=== PATIENT | female | born 1995 | race Caucasian/White ===

== ENCOUNTER 2017-03-05 21:46 | Inpatient (IN) | payer BC ==
[2017-03-05 22:45] LABS: Hematocrit 43 % (35-47); Hemoglobin 14.9 g/dl (12.0-16.0); Mean Corpuscular HGB Conc 35 g/dl (31-36); Mean Corpuscular Hemoglobin 31 pg (27-31); Mean Corpuscular Volume 89 fL (80-97); Mean Platelet Volume 9 um3 (7.4-10.4); Red Blood Count 4.79 10^6/ul (4.0-5.4); Red Cell Distribution Width 12 % (10.5-15); White Blood Count 6.7 10^3/ul (3.5-10.8)
[2017-03-05 22:56] LABS: ALT 15 U/L (7-52); AST 22 U/L (13-39); Acetaminophen < 15 mcg/mL; Albumin 4.7 g/dL (3.2-5.2); Alcohol 220 mg/dL (<10); Alkaline Phosphatase 50 U/L (34-104); Anion Gap 11 mmol/L (2-11); BUN/Creatinine Ratio 9.5 (8-20); Blood Urea Nitrogen 8 mg/dL (6-24); CO2 Carbon Dioxide 22 mmol/L (22-32); Calcium 9.4 mg/dL (8.6-10.3); Chloride 107 mmol/L (101-111); EGFR African American 108.1 (>60); Globulin 3.4 g/dL (2-4); Glucose 102 mg/dL (70-100); Potassium 4.2 mmol/L (3.5-5.0); Salicylate < 2.50 mg/dL (<30); Sodium 140 mmol/L (133-145); Total Protein 8.1 g/dL (6.4-8.9)
[2017-03-05] MEDS ORDERED: Ondansetron INJ* 2 MG/ML VIAL IV ONE (23:00)
[2017-03-05] MEDS ORDERED: NS 0.9% 1000 ML* 1,000 ML IV ONE (23:00)
[2017-03-05 23:17] LABS: TSH (Thyroid Stimulating Horm) 6.35 mcIU/mL (0.34-5.60)
[2017-03-06 00:01] LABS: Lipase 30 U/L (11.0-82.0)
[2017-03-06 00:20] LABS: Free T4 0.87 ng/dL (0.61-1.12)
[2017-03-06 00:34] LABS: Urine Bilirubin Negative (Negative); Urine Glucose Negative (Negative); Urine Nitrite Negative (Negative)
[2017-03-06 00:50] LABS: Benzodiazepine Urine Screen None Detected (None Detect)
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
[2017-03-06] MEDS ORDERED: Al Hydrox/Mg Hydrox/Simet LIQ* 30 ML UDC PO PRN (07:39)
[2017-03-06] MEDS ORDERED: Acetaminophen TAB* 325 MG PO PRN (07:39)
[2017-03-06] MEDS ORDERED: BIRTH CONTROL PO SCH (08:00)
[2017-03-06] MEDS ORDERED: Venlafaxine EXT RELEASE CAP* 75 MG PO SCH (09:00)
[2017-03-06] MEDS: Levothyroxine TAB* 25 MCG TAB PO SCH (13:53)
[2017-03-06] MEDS: Vitamin THERAPEUTIC TAB PO SCH (13:53)
[2017-03-06] MEDS: lamoTRIgine TAB(*) 25 MG PO SCH (18:59)
[2017-03-06] MEDS: LURASIDONE 20 MG PO SCH (18:59)
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
[2017-03-07] MEDS: LURASIDONE 20 MG PO SCH (08:18)
[2017-03-07] MEDS: lamoTRIgine TAB(*) 25 MG PO SCH (08:18)
[2017-03-07] MEDS: Vitamin THERAPEUTIC TAB PO SCH (08:18)
[2017-03-07] MEDS: Levothyroxine TAB* 25 MCG TAB PO SCH (09:15)
[2017-03-07] MEDS: LEVONORGESTREL PO SCH (10:59)
[2017-03-07] MEDS: ETHINYL ESTRADIOL PO SCH (10:59)
--- NOTE | 2017-03-07 13:05 | PN ---
Subjective - Subjective Service Type: 78276 Hosp care 15 min low complexity Subjective: Patient remains depressed and did have some vague SI when she thought of the problems she's caused her family and wondered if they would be better off without her. She is tolerating the medication well so far and active in groups. "I'm forcing myself to be active and to go to the meetings. Usually I just sleep during these times." She is interested in attending AA this evening , stating that alcohol is something she's recognizing her dependence on. Family to visit [facility]. Objective - Appearance Appearance: Well Developed/Nourished Dysmorphic Features: No Hygiene: Normal Grooming: Fairly Well Kept - Behavior Psychomotor Activities: Normal Exhibits Abnormal Movement: No - Attitude and Relatedness Attitude and Relatedness: Cooperative Eye Contact: Good - Speech Quality: Unpressured Latencies: Normal Quantity: Appropriate - Mood Patient's Decription of Mood: "Sad" - Affect Observed Affect: Tearful Affect Consistent with: Dysphoria - Thought Process Patient's Thought Process: Coherent Thought Content: Yes Passive Wish, No Suicidal Planning, No Homicidal Ideation, No Paranoid Ideation - Sensorium Experiencing Hallucinations: No, Sensorium is Clear Type of Hallucinations: Visual: No, Auditory: No, Command: No - Level of Consciousness Level of Consciousness: Alert Orientation: Yes Intact, Yes Orientated to Time, Yes Orientated to Place, Yes Orientated to Person - Impulse Control Impulse Control: Tenuous - Insight and Judgement Insight and Judgement: Fair - Group Participation Particating in Group Activities: Yes - Medication Management Medication Management Adherence: Yes Assessment - Assessment Merits Inpatient Hospitalization: For Immediate Safety, For Stabilization Inpatient DSM-IV Dx: Bipolar DO, Type II Clinical Impression: 21 y.o. single, white female with a history of affective dysregulation, active substance abuse (cannabis, alcohol, cocaine) and prior diagnosis of borderline PD, who is self-referred to the hospital, accompanied by her father, following an intentional overdose on between 20 and 30 OTC ibuprofen tablets. Plan - Plan Treatment Plan: Name: RASHEL VEGA Birthdate: 1995 [id number] We have started a trial of lamotrigine 25mg PO qam and lurasidone 20mg PO qday. Continue to treat in the inpatient setting. Continued Medication Management: Different Medication Medications: Current Medications Acetaminophen (Tylenol Tab*) 650 mg PO Q4H PRN PRN Reason: PAIN or TEMP > 101 F Al Hydrox/Mg Hydrox/Simethicone (Maalox Plus*) 30 ml PO Q4H PRN PRN Reason: INDIGESTION Lamotrigine (Lamictal Tab(*)) 25 mg PO DAILY [facility] Last Admin: 03/07/17 08:18 Dose: 25 mg Levothyroxine Sodium (Synthroid Tab*) 25 mcg PO DAILY@0600 [facility] Last Admin: 03/07/17 09:15 Dose: 25 mcg Lurasidone HCl (Latuda (Nf)) 20 mg PO DAILY [facility] Last Admin: 03/07/17 08:18 Dose: 20 mg Multivitamins (Theragran Tab*) 1 tab PO DAILY [facility] Last Admin: 03/07/17 08:18 Dose: 1 tab Pto: Camrese Lo 1 dose PO DAILY [facility] Last Admin: 03/07/17 10:59 Dose: 1 dose - Discharge Plan Discharge Plan: Inpatient Hospitalization
[2017-03-08] MEDS: Levothyroxine TAB* 25 MCG TAB PO SCH (06:10)
[2017-03-08] MEDS: lamoTRIgine TAB(*) 25 MG PO SCH (08:43)
[2017-03-08] MEDS: LURASIDONE 20 MG PO SCH (08:43)
[2017-03-08] MEDS: LEVONORGESTREL PO SCH (08:44)
[2017-03-08] MEDS: ETHINYL ESTRADIOL PO SCH (08:44)
[2017-03-08] MEDS: Vitamin THERAPEUTIC TAB PO SCH (08:45)
[2017-03-09] MEDS: Levothyroxine TAB* 25 MCG TAB PO SCH (06:05)
[2017-03-09] MEDS: LURASIDONE 20 MG PO SCH (07:51)
[2017-03-09] MEDS: ETHINYL ESTRADIOL PO SCH (07:51)
[2017-03-09] MEDS: Vitamin THERAPEUTIC TAB PO SCH (07:51)
[2017-03-09] MEDS: LEVONORGESTREL PO SCH (07:51)
[2017-03-09] MEDS: lamoTRIgine TAB(*) 25 MG PO SCH (07:52)
--- NOTE | 2017-03-09 16:09 | PN ---
Subjective - Subjective Service Type: 53256 Hosp care 15 min low complexity Subjective: La appears to be upbeat today and reports that she is feeling a lot better. Threw up in the morning due to severe anxiety which resolved later during the day. Didn't have suicidal thoughts all day today and looking forwards to continue to do well and go home soon. Objective - Appearance Appearance: Healthy Appearing Dysmorphic Features: No Hygiene: Normal Grooming: Well Kept - Behavior Psychomotor Activities: Normal - Attitude and Relatedness Attitude and Relatedness: Appropriate Eye Contact: Good - Speech Quality: Unpressured Latencies: Normal Quantity: Appropriate - Mood Patient's Decription of Mood: "Fine" - Affect Observed Affect: Non-labile Affect Consistent with: Euthymia - Thought Process Patient's Thought Process: Coherent, Goal Directed Thought Content: No Passive Wish, No Suicidal Planning, No Homicidal Ideation, No Paranoid Ideation - Sensorium Experiencing Hallucinations: No, Sensorium is Clear Type of Hallucinations: Visual: No, Auditory: No, Command: No - Level of Consciousness Level of Consciousness: Alert Orientation: Yes Intact, Yes Orientated to Time, Yes Orientated to Place, Yes Orientated to Person - Impulse Control Impulse Control: Intact - Insight and Judgement Insight and Judgement: Fair - Group Participation Particating in Group Activities: Yes - Medication Management Medication Management Adherence: Yes Assessment - Assessment Merits Inpatient Hospitalization: Consolidate Improvements, For Discharge Planning Inpatient DSM-IV Dx: Bipolar DO, Type II Clinical Impression: Significantly improved and no thoughts of self harm today. Plan - Plan Treatment Plan: Name: LA VEGA Birthdate: 1995 [id number] Continued Medication Management: Continue Outpt Medication Medications: Current Medications Acetaminophen (Tylenol Tab*) 650 mg PO Q4H PRN PRN Reason: PAIN or TEMP > 101 F Al Hydrox/Mg Hydrox/Simethicone (Maalox Plus*) 30 ml PO Q4H PRN PRN Reason: INDIGESTION Lamotrigine (Lamictal Tab(*)) 25 mg PO DAILY [facility] Last Admin: 03/09/17 07:52 Dose: 25 mg Levothyroxine Sodium (Synthroid Tab*) 25 mcg PO DAILY@0600 [facility] Last Admin: 03/09/17 06:05 Dose: 25 mcg Lurasidone HCl (Latuda (Nf)) 20 mg PO DAILY [facility] Last Admin: 03/09/17 07:51 Dose: 20 mg Multivitamins (Theragran Tab*) 1 tab PO DAILY [facility] Last Admin: 03/09/17 07:51 Dose: 1 tab Pto: Faiza Bond 1 dose PO DAILY [facility] Last Admin: 03/09/17 07:51 Dose: 1 dose - Discharge Plan Discharge Plan: Outpatient Follow Up Outpatient Program: [facility]
[2017-03-10] MEDS: Levothyroxine TAB* 25 MCG TAB PO SCH (06:15)
[2017-03-10 07:59] LABS: HDL Cholesterol 53.6 mg/dL
[2017-03-10] MEDS: LEVONORGESTREL PO SCH (08:24)
[2017-03-10] MEDS: ETHINYL ESTRADIOL PO SCH (08:24)
[2017-03-10] MEDS: LURASIDONE 20 MG PO SCH (08:25)
[2017-03-10] MEDS: Vitamin THERAPEUTIC TAB PO SCH (08:25)
[2017-03-10] MEDS: lamoTRIgine TAB(*) 25 MG PO SCH (08:25)
--- NOTE | 2017-03-10 12:50 | PN ---
Subjective - Subjective Service Type: 59375 Hosp care 15 min low complexity Subjective: Patient is tolerating medications well. Denies SI. More hopeful today. Identifying supports in the community such as her grandmother and the AA community. Went to her first AA meeting yesterday. Patient attentive in groups. Completed MMPI which was significant for hypomania. Mother is visiting tomorrow for a family meeting. Objective - Appearance Appearance: Well Developed/Nourished Dysmorphic Features: No Hygiene: Normal Grooming: Fairly Well Kept - Behavior Psychomotor Activities: Normal Exhibits Abnormal Movement: No - Attitude and Relatedness Attitude and Relatedness: Cooperative Eye Contact: Fair - Speech Quality: Unpressured Latencies: Normal Quantity: Appropriate - Mood Patient's Decription of Mood: "Anxious" - Affect Observed Affect: Fair Affect Consistent with: Euthymia - Thought Process Patient's Thought Process: Coherent Thought Content: No Passive Wish, No Suicidal Planning, No Homicidal Ideation, No Paranoid Ideation - Sensorium Experiencing Hallucinations: No, Sensorium is Clear Type of Hallucinations: Visual: No, Auditory: No, Command: No - Level of Consciousness Level of Consciousness: Alert Orientation: Yes Intact, Yes Orientated to Time, Yes Orientated to Place, Yes Orientated to Person - Impulse Control Impulse Control: Tenuous - Insight and Judgement Insight and Judgement: Fair - Group Participation Particating in Group Activities: Yes - Medication Management Medication Management Adherence: Yes Assessment - Assessment Merits Inpatient Hospitalization: For Immediate Safety, For Stabilization Inpatient DSM-IV Dx: Bipolar DO, Type II Clinical Impression: 21 y.o. single, white female with a history of affective dysregulation, active substance abuse (cannabis, alcohol, cocaine) and prior diagnosis of borderline PD, who is self-referred to the hospital, accompanied by her father, following an intentional overdose on between 20 and 30 OTC ibuprofen tablets. Plan - Plan Treatment Plan: Name: RASHEL VEGA Birthdate: 1995 [id number] We have started a trial of lamotrigine 25mg PO qam and lurasidone 20mg PO qday. Will increase lamotrigine to 50mg and lurasidone to 40mg. Family meeting tomorrow at noon. Target discharge to home for Friday, March 12. Will need and SA follow up. Continued Medication Management: Start Medication Medications: Current Medications Acetaminophen (Tylenol Tab*) 650 mg PO Q4H PRN PRN Reason: PAIN or TEMP > 101 F Al Hydrox/Mg Hydrox/Simethicone (Maalox Plus*) 30 ml PO Q4H PRN PRN Reason: INDIGESTION Lamotrigine (Lamictal Tab(*)) 50 mg PO DAILY [facility] Levothyroxine Sodium (Synthroid Tab*) 25 mcg PO DAILY@0600 [facility] Last Admin: 03/10/17 06:15 Dose: 25 mcg Lurasidone HCl (Latuda) 40 mg PO 1700 [facility] Multivitamins (Theragran Tab*) 1 tab PO DAILY [facility] Last Admin: 03/10/17 08:25 Dose: 1 tab Pto: Camrese Lo 1 dose PO DAILY [facility] Last Admin: 03/10/17 08:24 Dose: 1 dose - Discharge Plan Discharge Plan: Inpatient Hospitalization Lab Results - Lab Results Lab Results: 03/10/17 07:23 Triglycerides 50 Cholesterol 161 LDL Cholesterol 97 HDL Cholesterol 53.6
[2017-03-10] MEDS: Lurasidone 40 MG TAB PO SCH (17:32)
[2017-03-11] MEDS: lamoTRIgine TAB(*) 25 MG PO SCH (08:51)
[2017-03-11] MEDS: LEVONORGESTREL PO SCH (08:52)
[2017-03-11] MEDS: Vitamin THERAPEUTIC TAB PO SCH (08:52)
[2017-03-11] MEDS: ETHINYL ESTRADIOL PO SCH (08:52)
--- NOTE | 2017-03-11 13:08 | PN ---
Subjective - Subjective Service Type: 01150 Family Medical Psyc Subjective: Patient seen for family meeting with her mother, Mattie Riggs. Patient is euthymic and free from SI for at least the past 3 days. Mother is supportive but concerned about some interpersonal problems between them, related to the patient's history of easy irritability and lack of taking responsibility for keeping her room clean at home. Patient remains motivated for outpatient follow up, both in the and realms. She intends to make it to at least 7 days in a row of AA meetings in her hometown after d/c. The patient is tolerating her medications well and seeking discharge to home tomorrow, which her mother is supportive of. Objective - Appearance Appearance: Well Developed/Nourished Dysmorphic Features: No Hygiene: Normal Grooming: Well Kept - Behavior Psychomotor Activities: Normal Exhibits Abnormal Movement: No - Attitude and Relatedness Attitude and Relatedness: Cooperative Eye Contact: Good - Speech Quality: Unpressured Latencies: Normal Quantity: Appropriate - Mood Patient's Decription of Mood: "Good" - Affect Observed Affect: Good Affect Consistent with: Euthymia - Thought Process Patient's Thought Process: Coherent Thought Content: No Passive Wish, No Suicidal Planning, No Homicidal Ideation, No Paranoid Ideation - Sensorium Experiencing Hallucinations: No, Sensorium is Clear Type of Hallucinations: Visual: No, Auditory: No, Command: No - Level of Consciousness Level of Consciousness: Alert Orientation: Yes Intact, Yes Orientated to Time, Yes Orientated to Place, Yes Orientated to Person - Impulse Control Impulse Control: Intact - Insight and Judgement Insight and Judgement: Good - Group Participation Particating in Group Activities: Yes - Medication Management Medication Management Adherence: Yes Assessment - Assessment Merits Inpatient Hospitalization: Consolidate Improvements, Pending Safe DC Plan Inpatient DSM-IV Dx: Bipolar DO, Type II Clinical Impression: 21 y.o. single, white female with a history of affective dysregulation, active substance abuse (cannabis, alcohol, cocaine) and prior diagnosis of borderline PD, who is self-referred to the hospital, accompanied by her father, following an intentional overdose on between 20 and 30 OTC ibuprofen tablets. Plan - Plan Treatment Plan: Name: RASHEL VEGA Birthdate: 1995 [id number] We have started a trial of lamotrigine 50mg PO qam and lurasidone 40mg PO qday. Targeting discharge to home for tomorrow, Friday, March 12. Will need MH and SA follow up. Continued Medication Management: Different Medication Medications: Current Medications Acetaminophen (Tylenol Tab*) 650 mg PO Q4H PRN PRN Reason: PAIN or TEMP > 101 F Al Hydrox/Mg Hydrox/Simethicone (Maalox Plus*) 30 ml PO Q4H PRN PRN Reason: INDIGESTION Lamotrigine (Lamictal Tab(*)) 50 mg PO DAILY [facility] Last Admin: 03/11/17 08:51 Dose: 50 mg Levothyroxine Sodium (Synthroid Tab*) 25 mcg PO DAILY@0600 [facility] Last Admin: 03/10/17 06:15 Dose: 25 mcg Lurasidone HCl (Latuda) 40 mg PO 1700 [facility] Last Admin: 03/10/17 17:32 Dose: 40 mg Multivitamins (Theragran Tab*) 1 tab PO DAILY [facility] Last Admin: 03/11/17 08:52 Dose: 1 tab Pto: Faiza Lo 1 dose PO DAILY [facility] Last Admin: 03/11/17 08:52 Dose: 1 dose - Discharge Plan Discharge Plan: Outpatient Follow Up Outpatient Program: Private Clinician(s) Lab Results - Lab Results Lab Results: 03/10/17 03/10/17 07:23 07:23 Hemoglobin A1c 5.3 Triglycerides 50 Cholesterol 161 LDL Cholesterol 97 HDL Cholesterol 53.6
[2017-03-11] MEDS: Levothyroxine TAB* 25 MCG TAB PO SCH (13:14)
[2017-03-11] MEDS: Lurasidone 40 MG TAB PO SCH (16:58)
[2017-03-12] MEDS: lamoTRIgine TAB(*) 25 MG PO SCH (08:28)
[2017-03-12] MEDS: Vitamin THERAPEUTIC TAB PO SCH (08:28)
[2017-03-12] MEDS: LEVONORGESTREL PO SCH (08:29)
[2017-03-12] MEDS: ETHINYL ESTRADIOL PO SCH (08:29)
[2017-03-12 08:46] VITALS: BP 108/78
--- NOTE | 2017-03-12 11:04 | PN ---
MHU: Group Therapy Note - Service Type Service Type: 12170 Group Psychotherapy - Cognitive Behavioral Group Therapy ( CBT):Patient was attentive and participatory in CBT programming this morning, and remained in good behavioral control. Patient expressed positive insights regarding relevant treatment interventions and goals.
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
== END 2017-03-12 15:00 | disposition home or self-care (01) | DRG 753 ==
LOC: ED 21:46 → BSU 03-06 12:19
PROVIDERS: ADMIT Psychiatry & Neurology Psychiatry; ATTEND Psychiatry & Neurology Psychiatry
PROC: GZHZZZZ Group Psychotherapy (ICD-10-PCS; principal; 2017-03-12)
DX: F31.81 Bipolar II disorder (principal); F50.2 Bulimia nervosa; E03.9 Hypothyroidism, unspecified; J45.909 Unspecified asthma, uncomplicated; F60.3 Borderline personality disorder; F14.10 Cocaine abuse, uncomplicated; F12.10 Cannabis abuse, uncomplicated; Y90.7 Blood alcohol level of 200-239 mg/100 ml; F10.10 Alcohol abuse, uncomplicated; T39.312A Poisoning by propionic acid derivatives, intentional self-harm, initial encounter; Y92.9 Unspecified place or not applicable; Z91.5 Personal history of self-harm; Z81.8 Family history of other mental and behavioral disorders; Z72.89 Other problems related to lifestyle
CPT/HCPCS: 36415; 80053; 80061; 80307; 80320; 80329; 81003; 83036; 83690; 84439; 84443; 85025; 90847; 96102; 99222; 99231; 99238; A9270-GY; G0480; J2405

== ENCOUNTER 2018-07-21 10:20 | Emergency (ER) | payer BC ==
--- NOTE | 2018-07-21 12:28 | UC ---
Complaint Female HPI - HPI Summary HPI Summary: 23-year-old female presents with 2 week history of suprapubic discomfort, burning at the end of urination, low back pain, and occasional nausea. Denies fever, vomiting, diarrhea, frequency, urgency, hematuria, vaginal discharge, or abnormal vaginal bleeding. - History Of Current Complaint Chief Complaint: UCGU Stated Complaint: POSS BLADDER INFECTION Time Seen by Provider: 07/21/18 12:22 Hx Obtained From: Patient Hx Last Menstrual Period: 2 months ago Pain Intensity: 6 - Allergies/Home Medications Allergies/Adverse Reactions: Allergies Allergy/AdvReac Type Severity Reaction Status Date / Time No Known Allergies Allergy Verified 07/21/18 10:40 Home Medications: Home Medications ARIPiprazole [Abilify] 10 mg PO DAILY 07/21/18 [History Confirmed 07/21/18] diphenhydrAMINE HCl [Benadryl Allergy] 50 mg PO ONCE PRN 07/21/18 [History Confirmed 07/21/18] PMH/Surg Hx/FS Hx/Imm Hx Endocrine History: Hypothyroidism Psychological History: Depression - Surgical History Surgical History: Yes Surgery Procedure, Year, and Place: TUBE IN EARS, TONSILS, CYST REMOVED RT RING FINGER,WISDOM. T&A - Family History Known Family History: Positive: Cardiac Disease, Other - PTSD mother, biploar father - Social History Occupation: Employed Part-time Lives: Alone Alcohol Use: None Alcohol Amount: 6 pack Substance Use Type: None Substance Use Comment - Amount & Last Used: daily Smoking Status (MU): Never Smoked Tobacco Amount Used/How Often: pt has not smoked or used tobacco productsa in last 30days - Immunization History Most Recent Influenza Vaccination: has not had Most Recent Pneumonia Vaccination: NA Review of Systems All Other Systems Reviewed And Are Negative: Yes Constitutional: Positive: Chills. Negative: Fever Skin: Positive: Negative Respiratory: Positive: Negative Cardiovascular: Positive: Negative Gastrointestinal: Positive: Abdominal Pain - Suprapubic, Nausea. Negative: Vomiting, Diarrhea Genitourinary: Positive: Dysuria. Negative: Hematuria, Frequency, Urgency, Vaginal/Penile Discharge, Ulceration/Lesion Musculoskeletal: Positive: Negative Neurological: Positive: Negative Is Patient Immunocompromised?: No Physical Exam - Summary Physical Exam Summary: GENERAL APPEARANCE: Well developed, well nourished, alert and cooperative, and appears to be in no acute distress. CARDIAC: Normal S1 and S2. No S3, S4 or murmurs. Rhythm is regular. There is no peripheral edema, cyanosis or pallor. Extremities are warm and well perfused. Capillary refill is less than 2 seconds. LUNGS: Clear to auscultation without rales, rhonchi, wheezing or diminished breath sounds. ABDOMEN: Positive bowel sounds. Soft, nondistended. Mild suprapubic tenderness. No guarding or rebound. No masses or hepatosplenomegally. No CVA tenderness. MUSKULOSKELETAL: ROM intact to all extremities. No joint erythema or tenderness. Normal muscular development. Normal gait. BACK: Examination of the spine reveals normal gait and posture, no spinal deformity or tenderness, decreased range of motion or muscular spasm. SKIN: Skin normal color, texture and turgor with no lesions or eruptions. Triage Information Reviewed: Yes Vital Signs: Initial Vital Signs Temp 98.4 F 07/21/18 10:35 Pulse 95 07/21/18 10:35 Resp 18 07/21/18 10:35 BP 109/67 07/21/18 10:35 Pulse Ox 100 07/21/18 10:35 Vital Signs Reviewed: Yes Diagnostics - Laboratory Diagnostic Studies Completed/Ordered: POC UA trace leukocytes otherwise normal. Urine negative. Urine culture pending. Complaint Female Dx - Course Course Of Treatment: 23-year-old female presents with 2 week history of suprapubic discomfort, burning at the end of urination, low back pain, and occasional nausea. Denies fever, vomiting, diarrhea, frequency, urgency, hematuria, vaginal discharge, or abnormal vaginal bleeding. Afebrile. Vital signs stable. Exam reveals an adult female in no acute distress with mild suprapubic tenderness, no CVA tenderness, and otherwise unremarkable exam. [id number] urinalysis showed trace leukocytes otherwise within normal parameters. Urine negative. Urine culture is pending. Based on her symptoms I will treat her empirically for UTI with Bactrim DS 1 tab twice a day 5 days as well as Pyridium 100 mg 3 times a day for 2 days pending the culture results. Patient is to follow-up with primary care provider in 3-5 days if symptoms do not improve. Anticipatory guidance and warning symptoms were reviewed with the patient. Verbalizes understanding and agrees with plan of care. - Differential Dx/Diagnosis Differential Diagnosis/HQI/PQRI: Ectopic, Pelvic Inflammatory Disease, , Renal Colic, Urinary Tract Infection Provider Diagnosis: UTI (urinary tract infection) Discharge - Sign-Out/Discharge Documenting (check all that apply): Patient Departure All imaging exams completed and their final reports reviewed: No Studies - Discharge Plan Condition: Stable Disposition: HOME Prescriptions: Phenazopyridine TAB* [Pyridium 100 mg TAB*] 100 mg PO TID #6 tab Sulfamethox/Trimethoprim DS* [Bactrim DS 800/160 TAB*] 1 tab PO BID #10 tab Patient Education Materials: Urinary Tract Infection in Women (ED) Referrals: Endy Vee MD [Primary Care Provider] - 5 Days (If no improvement in symptoms.) Additional Instructions: Your urine test in the clinic today is suggestive of a urinary tract infection. We will start you on an antibiotic to treat for the infection. We will also send a urine culture today to see what bacteria grow out and make sure the antibiotic you were prescribed is appropriate to treat the infection. It will take 48-72 hours to get these results. We will contact you if there is any change in your treatment plan. Start Bactrim DS 1 tab twice a day for 5 days. Take Pyridium 1 tablet every 8 hours for next 2 days to help with the discomfort. This medication will turn your urine an orange color. Drink plenty of fluids. To help prevent urinary tract infections: 1) Be sure to wipe from front to back. 2) Urinate immediately after any sexual intercourse. 3) Avoid taking bubble baths. Follow up with your primary care provider in 3-5 days if symptoms persist. Seek immediate medical attention in the emergency room if you develop fever greater than 100.5 F, have severe abdominal pain, persistent vomiting, or any worsening of symptoms. - Billing Disposition and Condition Condition: STABLE Disposition: Home
[2018-07-21 12:50] VITALS: BP 105/64
== END 2018-07-21 12:45 | disposition home or self-care (01) ==
LOC: UCEAST 10:20
DX: N39.0 Urinary tract infection, site not specified (principal); F32.9 Major depressive disorder, single episode, unspecified; Z79.899 Other long term (current) drug therapy
CPT/HCPCS: 81003; 84702; 87086; 87088; 99212; G0463

== ENCOUNTER 2021-01-31 14:38 | Inpatient (IN) ==
[2021-01-31 16:02] LABS: Urine Benzodiazepine Screen None Detected (None Detect); Urine Cannabinoids Screen None Detected (None Detect); Urine Opiates Screen None Detected (None Detect)
[2021-01-31 16:10] LABS: ABS Eosinophils 0.6 10^3/ul (0-0.6); ABS Lymphocytes 2.2 10^3/ul (1.0-4.8); ABS Monocytes 0.7 10^3/ul (0-0.8); Eosinophil % 9.8 %; Hematocrit 42 % (35-47); Hemoglobin 14.7 g/dL (12.0-16.0); Mean Corpuscular HGB Conc 35 g/dL (31-36); Mean Corpuscular Hemoglobin 31 pg (27-31); Mean Corpuscular Volume 88 fL (80-97); Mean Platelet Volume 8.4 fL (7.4-10.4); Platelet Count 345 10^3/uL (150-450); Red Blood Count 4.77 10^6 /uL (3.70-4.87); Red Cell Distribution Width 13 % (10-15); White Blood Count 6.6 10^3/uL (3.5-10.8)
[2021-01-31 16:14] LABS: Urine Appearance Turbid; Urine Bilirubin Negative (Negative); Urine Blood Negative (Negative); Urine Color Yellow; Urine Glucose Negative (Negative); Urine Ketones Negative (Negative); Urine Nitrite Negative (Negative); Urine Protein 1+(30 mg/dL) (Negative); Urine Specific Gravity 1.015 (1.002-1.030); Urine Urobilinogen Negative (Negative)
[2021-01-31 16:31] LABS: ALT 19 U/L (7-52); AST 26 U/L (13-39); Albumin/Globulin Ratio 1.5 (1-3); Alkaline Phosphatase 60 U/L (35-149); Anion Gap 6 mmol/L (2-11); Blood Urea Nitrogen 7 mg/dL (6-24); CO2 Carbon Dioxide 30 mmol/L (22-32); Calcium 9.1 mg/dL (8.6-10.3); Chloride 105 mmol/L (101-111); EGFR African American 93.3 (>60); EGFR Non-African American 77.1 (>60); Globulin 2.7 g/dL (2-4); Glucose 90 mg/dL (70-100); Potassium 3.6 mmol/L (3.5-5.0); Sodium 141 mmol/L (135-145); Total Protein 6.7 g/dL (6.4-8.9)
[2021-01-31 16:31] LABS: Urine Bacteria Absent (Absent); Urine Red Blood Cell Absent (Absent); Urine Squamous Epithelial Cell Present (Absent); Urine White Blood Cell Absent (Absent)
[2021-01-31 18:07] LABS: Acetaminophen < 15 mcg/mL; Alcohol, S < 13 mg/dL (<13); Salicylate < 2.50 mg/dL (<30)
[2021-01-31 18:18] LABS: TSH Ultra Thyroid Stim Horm 1.41 mcIU/mL (0.34-5.60)
[2021-01-31] MEDS ORDERED: Al Hydrox/Mg Hydrox/Simet LIQ 30 ML UDC PO PRN (22:39)
[2021-02-01] MEDS: Nicotine PATCH 21 MG/24 HR PATCH TRANSDERM SCH (10:33)
[2021-02-01] MEDS: Vitamin THERAPEUTIC TAB PO SCH (10:33)
[2021-02-02 08:46] LABS: HDL Cholesterol 36.6 mg/dL
[2021-02-02] MEDS: Vitamin THERAPEUTIC TAB PO SCH (10:50)
[2021-02-02] MEDS: Nicotine PATCH 21 MG/24 HR PATCH TRANSDERM SCH (10:51)
[2021-02-03] MEDS: Vitamin THERAPEUTIC TAB PO SCH (10:40)
[2021-02-03] MEDS: Nicotine PATCH 21 MG/24 HR PATCH TRANSDERM SCH (14:29)
[2021-02-04] MEDS: Nicotine PATCH 21 MG/24 HR PATCH TRANSDERM SCH (10:31)
[2021-02-04] MEDS: Vitamin THERAPEUTIC TAB PO SCH (10:31)
[2021-02-04] MEDS: Nicotine GUM 2MG FRUIT FLAVOR PO PRN ×2 (20:19→22:21)
[2021-02-05 09:26] VITALS: BP 119/73
[2021-02-05] MEDS: Nicotine PATCH 21 MG/24 HR PATCH TRANSDERM SCH (09:47)
[2021-02-05] MEDS: Vitamin THERAPEUTIC TAB PO SCH (09:47)
[2021-02-05] MEDS: Nicotine GUM 2MG FRUIT FLAVOR PO PRN (10:02)
== END 2021-02-05 13:40 | disposition home or self-care (01) | DRG 753 ==
LOC: ED 14:38 → BSU 23:14
PROVIDERS: ADMIT Psychiatry & Neurology Psychiatry; ATTEND Psychiatry & Neurology Psychiatry